=== PATIENT | female | born 1995 | race Two or more races ===

== ENCOUNTER 2022-06-04 08:55 | Outpatient (CLI) | payer OTHER | END 2022-06-04 10:35 | disposition home or self-care (01) | LOC: PRENATAL 08:55 | PROVIDERS: ATTEND Obstetrics & Gynecology Maternal & Fetal Medicine | DX: O36.80X0 Pregnancy with inconclusive fetal viability, not applicable or unspecified (principal); Z36.0 Encounter for antenatal screening for chromosomal anomalies; O99.891 Other specified diseases and conditions complicating pregnancy; O99.210 Obesity complicating pregnancy, unspecified trimester; Z3A.14 14 weeks gestation of pregnancy ==

== ENCOUNTER 2022-06-27 12:58 | Inpatient (IN) | payer OTHER ==
[~2022-06-27] VITALS: Ht 154.9 cm; Wt 93.0 kg
[2022-06-27] MEDS ORDERED: PRENATABS RX T1 EACH PO (14:09)
[2022-06-27] MEDS ORDERED: ASA-BUTALB-CAF1 EACH PO (14:09)
[2022-06-27] MEDS ORDERED: ECOTRIN81 MG PO (14:24)
== END 2022-06-28 10:13 | disposition home or self-care (01) | DRG 805 ==
LOC: LDR 12:58
PROVIDERS: ADMIT Obstetrics & Gynecology; ATTEND Obstetrics & Gynecology
PROC: 10E0XZZ Delivery of Products of Conception, External Approach (ICD-10-PCS; principal; 2022-06-27)
PROC: 4A1HXCZ Monitoring of Products of Conception, Cardiac Rate, External Approach (ICD-10-PCS; 2022-06-27)
PROC: BW4GZZZ Ultrasonography of Pelvic Region (ICD-10-PCS; 2022-06-27)
DX: O03.89 Complete or unspecified spontaneous abortion with other complications (principal); O34.32 Maternal care for cervical incompetence, second trimester; Z37.1 Single stillbirth; O41.1420 Placentitis, second trimester, not applicable or unspecified; O26.872 Cervical shortening, second trimester; O98.82 Other maternal infectious and parasitic diseases complicating childbirth; B95.61 Methicillin susceptible Staphylococcus aureus infection as the cause of diseases classified elsewhere; Z3A.17 17 weeks gestation of pregnancy

== ENCOUNTER 2023-03-27 08:37 | Outpatient (CLI) | payer OTHER ==
[~2023-03-27 08:37] MED LIST: ASA-BUTALB-CAF1 EACH PO; ECOTRIN81 MG PO; PRENATABS RX T1 EACH PO
== END 2023-03-27 10:18 | disposition home or self-care (01) ==
LOC: PRENATAL 08:37
PROVIDERS: ATTEND Obstetrics & Gynecology Maternal & Fetal Medicine
DX: O36.80X0 Pregnancy with inconclusive fetal viability, not applicable or unspecified (principal); O99.210 Obesity complicating pregnancy, unspecified trimester; O34.30 Maternal care for cervical incompetence, unspecified trimester; Z36.9 Encounter for antenatal screening, unspecified; Z3A.01 Less than 8 weeks gestation of pregnancy

== ENCOUNTER 2023-04-25 10:13 | Outpatient (CLI) | payer OTHER | END 2023-04-25 12:44 | disposition home or self-care (01) | LOC: PRENATAL 10:13 | PROVIDERS: ATTEND Obstetrics & Gynecology Maternal & Fetal Medicine | DX: O36.80X0 Pregnancy with inconclusive fetal viability, not applicable or unspecified (principal); Z36.9 Encounter for antenatal screening, unspecified; O99.210 Obesity complicating pregnancy, unspecified trimester; O34.30 Maternal care for cervical incompetence, unspecified trimester; Z3A.11 11 weeks gestation of pregnancy ==

== ENCOUNTER → 2023-05-06 | Day surgery (SDC) | payer OTHER ==
[~2023-05-06] MED LIST changes: +INDOMETHACIN25 MG PO; +METFORMIN HCL500 M3 PO
== END | disposition home or self-care (01) ==
LOC: CIR.AMB 09:00
PROVIDERS: ATTEND Obstetrics & Gynecology Maternal & Fetal Medicine
DX: O34.31 Maternal care for cervical incompetence, first trimester (principal); Z3A.12 12 weeks gestation of pregnancy; Z20.822 Contact with and (suspected) exposure to COVID-19

== ENCOUNTER 2023-05-21 08:37 | Outpatient (CLI) | payer OTHER | END 2023-05-21 10:08 | disposition home or self-care (01) | LOC: PRENATAL 08:37 | PROVIDERS: ATTEND Obstetrics & Gynecology Maternal & Fetal Medicine | DX: O26.849 Uterine size-date discrepancy, unspecified trimester (principal); O99.210 Obesity complicating pregnancy, unspecified trimester; O34.30 Maternal care for cervical incompetence, unspecified trimester; Z3A.15 15 weeks gestation of pregnancy ==

== ENCOUNTER 2023-07-24 10:01 | Outpatient (CLI) | payer OTHER | END 2023-07-24 10:11 | disposition home or self-care (01) | LOC: PRENATAL 10:01 | PROVIDERS: ATTEND Obstetrics & Gynecology Maternal & Fetal Medicine | DX: O26.849 Uterine size-date discrepancy, unspecified trimester (principal); O99.210 Obesity complicating pregnancy, unspecified trimester; O34.30 Maternal care for cervical incompetence, unspecified trimester; Z3A.24 24 weeks gestation of pregnancy ==

== ENCOUNTER 2023-09-02 12:46 | Outpatient (CLI) | payer OTHER | END 2023-09-02 12:47 | disposition home or self-care (01) | LOC: PRENATAL 12:46 | PROVIDERS: ATTEND Obstetrics & Gynecology Maternal & Fetal Medicine | DX: O26.849 Uterine size-date discrepancy, unspecified trimester (principal); O99.210 Obesity complicating pregnancy, unspecified trimester; O34.30 Maternal care for cervical incompetence, unspecified trimester; Z3A.30 30 weeks gestation of pregnancy ==

== ENCOUNTER 2023-10-21 09:40 | Day surgery (SDC) | payer OTHER ==
[2023-10-18 14:22] LABS: HEMATOCRIT 34.7 % (36.0-45.00); HEMOGLOBIN 11.6 g/dL (12.0-15.00); MEAN CELL VOLUME 87.2 fL (80.00-100.00); MEAN CORPUSCULAR HEMOGLOBIN 29.1 pg (27.00-32.0); MEAN CORPUSCULAR HGB CONC 33.4 g/dl (32.0-36.0); PLATELET COUNT 364 K/uL (150-450); RED BLOOD COUNT 3.98 M/uL (4.00-6.00); RED CELL DISTRIBUTION WIDTH 14.1 % (11.5-14.5)
[2023-10-18 14:37] LABS: INR < 0.93; PARTIAL THROMBOPLASTIN TIME 27.6 SECONDS (22.0-34.0); PROTHROMBIN TIME 9.6 SECONDS (9.0-11.5)
[2023-10-18 14:41] LABS: ALBUMIN 3.2 gm/dL (3.4-5.0); BILIRUBIN TOTAL 0.25 mg/dL (0.3-1.2); CALCIUM 10.3 mg/dL (8.5-10.1); CREATININE SERUM 0.66 mg/dL (0.55-1.02); GFR 108.25; GLOBULINA 4.1 G/DL (2.4-3.5); POTASSIUM 4.39 mEq/L (3.5-5.1); TOTAL PROTEIN 7.3 gm/dL (6.4-8.2)
[~2023-10-21 09:40] MED LIST changes: +FERREX 150 FOR1 EACH PO
== END 2023-10-21 19:00 | disposition home or self-care (01) ==
LOC: CIR.AMB 09:40
PROVIDERS: ATTEND Obstetrics & Gynecology
DX: O34.33 Maternal care for cervical incompetence, third trimester (principal); Z3A.37 37 weeks gestation of pregnancy; Z20.822 Contact with and (suspected) exposure to COVID-19

== ENCOUNTER 2023-11-05 12:21 | Inpatient (IN) | payer OTHER ==
[~2023-11-05] VITALS: Ht 154.9 cm; Wt 102.1 kg
[2023-11-05] MEDS ORDERED: AMPICILLIN SODIUM 2,000 MG VIAL ONE (12:43)
[2023-11-05] MEDS ORDERED: RINGERS SOLUTION,LACTATED 1,000 ML IV SCH (13:15)
[2023-11-05] MEDS ORDERED: AMPICILLIN SODIUM 2,000 MG VIAL IV ONE (13:15)
[2023-11-05 13:45] LABS: HEMATOCRIT 34.5 % (36.0-45.00); HEMOGLOBIN 11.5 g/dL (12.0-15.00); MEAN CELL VOLUME 86.5 fL (80.00-100.00); MEAN CORPUSCULAR HEMOGLOBIN 28.9 pg (27.00-32.0); MEAN CORPUSCULAR HGB CONC 33.4 g/dl (32.0-36.0); PLATELET COUNT 337 K/uL (150-450); RED BLOOD COUNT 3.98 M/uL (4.00-6.00)
[2023-11-05 13:46] LABS: PH,URINE 7.5 (5.0-8.0); URINE APPEARANCE Cloudy; URINE BILIRRUBIN Negative (NEGATIVE); URINE BLOOD Negative; URINE COLOR Yellow; URINE GLUCOSE Negative (NEGATIVE); URINE LEUKOCYTE Small; URINE NITRATE Negative; URINE PROTEIN Negative (NEGATIVE); URINE UROBILINOGEN 0.2 E.U./dl
[2023-11-05 13:47] LABS: URINE BACTERIA 147.4 uL (0.0-1933); URINE EPITHELIAL CELLS 30.1 uL (0.0-38.8); URINE WBC 7.1 uL (0.0-23.2)
[2023-11-05 14:13] LABS: INR < 0.93; PARTIAL THROMBOPLASTIN TIME 26.5 SECONDS (22.0-34.0); PROTHROMBIN TIME 9.3 SECONDS (9.0-11.5)
[2023-11-05 14:15] LABS: CALCIUM 9.8 mg/dL (8.5-10.1); CREATININE SERUM 0.67 mg/dL (0.55-1.02); GFR 106.39; POTASSIUM 4.06 mEq/L (3.5-5.1)
[2023-11-05] MEDS ORDERED: AMPICILLIN SODIUM 1,000 MG VIAL IV SCH (17:00)
[2023-11-06] MEDS ORDERED: OXYTOCIN 20 UNITS/500ML RL PIGGYBAG IV SCH (09:45)
[2023-11-06] MEDS ORDERED: CHLORHEXIDINE GLUCONATE 120 ML BOTTLE TOP ONE (12:18)
[2023-11-06] MEDS ORDERED: ERYTHROMYCIN BASE 1 GM TUBE OP ONE (12:18)
[2023-11-06] MEDS ORDERED: MORPHINE SULFATE 4 MG/ML CARTRIDGE IV ONE (12:45)
[2023-11-06] MEDS ORDERED: CHLORHEXIDINE GLUCONATE 120 ML BOTTLE TP SCH (15:00)
[2023-11-06] MEDS ORDERED: LIDOCAINE HCL 1% 200MG/20ML VIAL IJ SCH (15:00)
[2023-11-06] MEDS ORDERED: OXYTOCIN 1,000 ML IV SCH (15:00)
[2023-11-06] MEDS ORDERED: ERYTHROMYCIN BASE 1 GM TUBE OP SCH (15:00)
[2023-11-06] MEDS ORDERED: IBUprofen 800 MG TABLET PO SCH (17:00)
[2023-11-06] MEDS ORDERED: DOCUSATE SODIUM 100MG CAP PO SCH (17:00)
[2023-11-07 11:56] LABS: HEMATOCRIT 31.3 % (36.0-45.00); HEMOGLOBIN 10.5 g/dL (12.0-15.00); MEAN CELL VOLUME 88.5 fL (80.00-100.00); MEAN CORPUSCULAR HEMOGLOBIN 29.7 pg (27.00-32.0); MEAN CORPUSCULAR HGB CONC 33.6 g/dl (32.0-36.0); PLATELET COUNT 316 K/uL (150-450); RED BLOOD COUNT 3.53 M/uL (4.00-6.00); RED CELL DISTRIBUTION WIDTH 14.9 % (11.5-14.5)
== END 2023-11-08 17:38 | disposition home or self-care (01) | DRG 807 ==
LOC: LDR 12:21 → OB/GYN 11-06 14:07
PROVIDERS: ADMIT Obstetrics & Gynecology; ATTEND Obstetrics & Gynecology
PROC: 4A1HXCZ Monitoring of Products of Conception, Cardiac Rate, External Approach (ICD-10-PCS; 2023-11-05)
PROC: 10E0XZZ Delivery of Products of Conception, External Approach (ICD-10-PCS; principal; 2023-11-06)
DX: O99.824 Streptococcus B carrier state complicating childbirth (principal); Z37.0 Single live birth; Z3A.39 39 weeks gestation of pregnancy; Z20.822 Contact with and (suspected) exposure to COVID-19

== ENCOUNTER 2024-08-07 11:25 | Outpatient (CLI) | payer OTHER | END 2024-08-07 11:26 | disposition home or self-care (01) | LOC: PRENATAL 11:25 | PROVIDERS: ATTEND Obstetrics & Gynecology Maternal & Fetal Medicine | DX: O36.80X0 Pregnancy with inconclusive fetal viability, not applicable or unspecified (principal); Z36.82 Encounter for antenatal screening for nuchal translucency; Z14.8 Genetic carrier of other disease; O34.30 Maternal care for cervical incompetence, unspecified trimester; Z3A.14 14 weeks gestation of pregnancy ==

== ENCOUNTER 2024-08-31 10:20 | Day surgery (SDC) | payer OTHER ==
[2024-08-27 11:46] LABS: HEMATOCRIT 32.5 % (36.0-45.00); HEMOGLOBIN 11.1 g/dL (12.0-15.00); MEAN CELL VOLUME 87.7 fL (80.00-100.00); MEAN CORPUSCULAR HEMOGLOBIN 30.1 pg (27.00-32.0); MEAN CORPUSCULAR HGB CONC 34.3 g/dl (32.0-36.0); PLATELET COUNT 284 K/uL (150-450)
[2024-08-27 12:01] LABS: INR 0.95; PROTHROMBIN TIME 10.4 SECONDS (9.0-11.5)
[2024-08-27 13:02] LABS: RH POSITIVE
[2024-08-31] MEDS ORDERED: POVIDONE-IODINE 118 ML BOTT TOP SCH (16:45)
[2024-08-31] MEDS ORDERED: METRONIDAZOLE/SODIUM CHLORIDE 500 MG/100 ML PIGGYBACK IV SCH (16:45)
== END 2024-09-01 | disposition home or self-care (01) ==
LOC: CIR.AMB 10:20
PROVIDERS: ATTEND Obstetrics & Gynecology Maternal & Fetal Medicine
DX: O34.32 Maternal care for cervical incompetence, second trimester (principal); Z3A.17 17 weeks gestation of pregnancy

== ENCOUNTER 2024-09-21 08:23 | Outpatient (CLI) | payer OTHER | END 2024-09-21 08:25 | disposition home or self-care (01) | LOC: PRENATAL 08:23 | PROVIDERS: ATTEND Obstetrics & Gynecology Maternal & Fetal Medicine | DX: O44.00 Complete placenta previa NOS or without hemorrhage, unspecified trimester (principal); O34.30 Maternal care for cervical incompetence, unspecified trimester; Z3A.21 21 weeks gestation of pregnancy ==

== ENCOUNTER 2024-11-11 10:59 | Outpatient (CLI) | payer OTHER | END 2024-11-11 11:00 | disposition home or self-care (01) | LOC: PRENATAL 10:59 | PROVIDERS: ATTEND Obstetrics & Gynecology Maternal & Fetal Medicine | DX: O26.849 Uterine size-date discrepancy, unspecified trimester (principal); O34.30 Maternal care for cervical incompetence, unspecified trimester; Z3A.28 28 weeks gestation of pregnancy ==

== ENCOUNTER 2024-12-22 09:24 | Outpatient (CLI) | payer OTHER | END 2024-12-22 09:25 | disposition home or self-care (01) | LOC: PRENATAL 09:24 | PROVIDERS: ATTEND Obstetrics & Gynecology Maternal & Fetal Medicine | DX: O26.849 Uterine size-date discrepancy, unspecified trimester (principal); O36.8199 Decreased fetal movements, unspecified trimester, other fetus; O34.30 Maternal care for cervical incompetence, unspecified trimester; Z3A.34 34 weeks gestation of pregnancy ==

== ENCOUNTER 2025-01-04 10:54 | Outpatient (CLI) | payer OTHER ==
[~2025-01-04] VITALS: Ht 154.9 cm; Wt 97.1 kg
[2025-01-04 11:23] VITALS: BP 91/60
[2025-01-04] MEDS ORDERED: RINGERS SOLUTION,LACTATED 1,000 ML IV SCH (12:15)
[2025-01-04 15:19] VITALS: BP 101/63
[2025-01-04 16:50] VITALS: BP 101/62
== END 2025-01-04 16:50 | disposition home or self-care (01) ==
LOC: OBS/DEL 10:54
PROVIDERS: ATTEND Obstetrics & Gynecology
DX: O26.893 Other specified pregnancy related conditions, third trimester (principal); O34.33 Maternal care for cervical incompetence, third trimester; Z3A.36 36 weeks gestation of pregnancy

== ENCOUNTER 2025-01-21 09:12 | Inpatient (IN) | payer OTHER ==
[2025-01-21] VITALS (9 sets, daily range): BP systolic 107–141; BP diastolic 51–82
[~2025-01-21] VITALS: Ht 154.9 cm; Wt 98.4 kg
[2025-01-21] MEDS ORDERED: AMPICILLIN SODIUM 2,000 MG VIAL ONE (09:13)
[2025-01-21] MEDS ORDERED: AMPICILLIN SODIUM 2,000 MG VIAL IV ONE (09:30)
[2025-01-21] MEDS ORDERED: RINGERS SOLUTION,LACTATED 1,000 ML IV SCH (09:30)
[2025-01-21 11:13] LABS: HEMATOCRIT 36.1 % (36.0-45.00); MEAN CELL VOLUME 87.2 fL (80.00-100.00); MEAN CORPUSCULAR HGB CONC 33.3 g/dl (32.0-36.0); PLATELET COUNT 337 K/uL (150-450); RED BLOOD COUNT 4.14 M/uL (4.00-6.00); RED CELL DISTRIBUTION WIDTH 14.2 % (11.5-14.5)
[2025-01-21 11:38] LABS: INR < 0.93; PARTIAL THROMBOPLASTIN TIME 27.5 SECONDS (22.0-34.0); PROTHROMBIN TIME 9.6 SECONDS (9.0-11.5)
[2025-01-21 11:41] LABS: BILIRUBIN TOTAL 0.24 mg/dL (0.3-1.2); CREATININE SERUM 0.55 mg/dL (0.55-1.02); GFR 132.59; POTASSIUM 3.91 mEq/L (3.5-5.1)
[2025-01-21] MEDS ORDERED: AMPICILLIN SODIUM 1,000 MG VIAL IV SCH (13:00)
[2025-01-21] MEDS ORDERED: OXYTOCIN 20 UNITS/500ML RL PIGGYBAG IV SCH (15:30)
[2025-01-21] MEDS ORDERED: OXYTOCIN 20 UNITS/500ML RL PIGGYBAG IV ONE (15:31)
[2025-01-21] MEDS ORDERED: MORPHINE SULFATE 4 MG/ML VIAL IV SCH (20:00)
[2025-01-21] MEDS ORDERED: CHLORHEXIDINE GLUCONATE 120 ML BOTTLE TOP ONE (20:52)
[2025-01-21] MEDS ORDERED: ERYTHROMYCIN BASE OPHT 1GM EACH TUBE OP ONE ×2 (20:52→21:45)
[2025-01-21] MEDS ORDERED: LIDOCAINE HCL 1% 10ML VIAL ONE (20:52)
[2025-01-21] MEDS ORDERED: OXYTOCIN 20 UNITS/1000ML RL PIGGYBAG IV ONE (20:52)
[2025-01-21] MEDS ORDERED: IBUprofen 400 MG TABLET PO SCH (21:26)
[2025-01-21] MEDS ORDERED: OXYTOCIN 1,000 ML IV SCH (21:30)
[2025-01-21] MEDS ORDERED: CHLORHEXIDINE GLUCONATE 120 ML BOTTLE TP SCH (21:30)
[2025-01-21] MEDS ORDERED: IBUprofen 800 MG TABLET PO ONE (22:43)
[2025-01-22 01:52] VITALS: BP 120/70
[2025-01-22 08:50] VITALS: BP 125/80
[2025-01-22] MEDS ORDERED: IBUprofen 800 MG TABLET PO SCH (09:00)
[2025-01-22 11:18] LABS: HEMATOCRIT 31.9 % (36.0-45.00); HEMOGLOBIN 10.8 g/dL (12.0-15.00); MEAN CELL VOLUME 87.4 fL (80.00-100.00); MEAN CORPUSCULAR HEMOGLOBIN 29.6 pg (27.00-32.0); MEAN CORPUSCULAR HGB CONC 33.9 g/dl (32.0-36.0); PLATELET COUNT 323 K/uL (150-450); RED BLOOD COUNT 3.65 M/uL (4.00-6.00); RED CELL DISTRIBUTION WIDTH 14.3 % (11.5-14.5)
[2025-01-22 13:25] VITALS: BP 107/70
[2025-01-22 17:18] VITALS: BP 116/73
[2025-01-22 20:34] VITALS: BP 108/60
[2025-01-23] VITALS: BP 91/60
== END 2025-01-23 16:29 | disposition home or self-care (01) | DRG 807 ==
LOC: LDR 09:12 → OB/GYN 22:59
PROVIDERS: ADMIT Obstetrics & Gynecology; ATTEND Obstetrics & Gynecology
PROC: 10E0XZZ Delivery of Products of Conception, External Approach (ICD-10-PCS; principal; 2025-01-21)
PROC: 4A1HXCZ Monitoring of Products of Conception, Cardiac Rate, External Approach (ICD-10-PCS; 2025-01-21)
DX: O99.824 Streptococcus B carrier state complicating childbirth (principal); Z37.0 Single live birth; Z3A.38 38 weeks gestation of pregnancy